=== PATIENT | female | born 1960 | race Caucasian/White ===

== ENCOUNTER 2019-05-27 08:48 | Outpatient (CLI) | payer OTHER ==
--- NOTE | 2019-05-27 15:10 | NM ---
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 There is left hip pain. TECHNIQUE: The patient was given 32 millicuries of technetium MDP IV. A three-phase bone scan through the hips was obtained with delayed whole body skeletal images. FINDINGS: There is symmetric activity seen to both hips on blood flow and blood pool images. On delayed skeletal images, there is symmetric activity at both hips. No evidence of loosening or os teomyelitis. 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 There is focal activity in the femoral diaphysis bilaterally, at the tip of the prosthetic device. T his is symmetric in both femurs. Mild activity in the mid thoracic spine suggests degenerative change. IMPRESSION: Symmetric activity, as described above. POS: [facility]
== END 2019-05-27 08:49 | disposition home or self-care (01) ==
LOC: NM 08:48
PROVIDERS: ATTEND Specialist
DX: M87.052 Idiopathic aseptic necrosis of left femur (principal); T84.84XA Pain due to internal orthopedic prosthetic devices, implants and grafts, initial encounter
CPT/HCPCS: 78315; A9503